=== PATIENT | female | born 1980 | race Two or more races ===

== ENCOUNTER 2017-08-19 19:30 | Emergency (ER) | payer MEDICAID ==
[~2017-08-19] VITALS: Ht 162.6 cm; Wt 103.9 kg
[~2017-08-19 19:30] MED LIST: ALBUTEROL SULF8.5 GM INH; CIPROFLOXACIN500 M2 ORAL; FLOMAX0.4 MG ORAL; IBUPROFEN600 MG ORAL; IBUPROFEN800 MG ORAL; INH300 MG ORAL; KEFLEX500 MG ORAL; MECLIZINE HCL25 MG ORAL; NITROFURANTOIN100 M2 ORAL; NKM; NORCO 5-325 TA1 EACH ORAL; PERMETHRIN60 GM TOPIC; PREDNISONE20 MG ORAL; PYRIDOXINE HCL50 MG ORAL; RANITIDINE HCL150 MG ORAL; TAMSULOSIN HCL0.4 MG ORAL; TRAMADOL HCL50 MG ORAL; ZOFRAN ODT4 MG ORAL; ZOFRAN4 MG ORAL
[2017-08-19] MEDS ORDERED: Excedrin Migraine tab ORAL ONE (20:00)
[2017-08-19 20:13] LABS: APPEARANCE,URINE CLEAR; BILIRUBIN, URINE NEGATIVE (NEGATIVE); COLOR,URINE PALE YELLOW; GLUCOSE, URINE (UA) NEGATIVE (NEGATIVE); KETONES,URINE NEGATIVE (NEGATIVE); LEUKOCYTE ESTERASE ,URINE NEGATIVE (NEGATIVE); NITRITE,URINE NEGATIVE (NEGATIVE); PH,URINE 6.5 (4.5-8.0); PROTEIN,URINE NEGATIVE (NEGATIVE); UROBILINOGEN,URINE NORMAL MG/DL (0.0-1.0)
[2017-08-19] MEDS ORDERED: HYDROcodone/Acetamin 7.5/325 tab ORAL ONE (20:45)
--- NOTE | 2017-08-19 21:31 | Emergency Room Report ---
History of Present Illness General Chief Complaint: Headache Source: Patient Present Illness HPI 37-year-old female presents to the emergency department complaining of right- sided progressive pulsatile frontal headache with associated nausea x2 weeks. Patient reports history of migraines with similar presentation without auditory or visual aura. Patient reports loud noises and bright lights do exacerbate her headache. Patient states she's has been out of her migraine medication and she has been trying multiple khdj-gto-wpmcwiy remedies which only provide little temporary relief. Patient denies dysuria, vomiting, fevers, chills, neck pain or stiffness. Denies unilateral weakness, facial drooping, slurred speech, lacrimation or headaches that return at the same time daily. Denies eye pain, or pain with eye movements. Denies recent spinal procedures/LP's. Patient reports dizziness upon getting up too quickly she denies vertigo. Patient reports that she does not drink water regularly.she denies . Denies CP, Palpitations, LOC, AMS, dizziness, Changes in Vision, Sensation, paresthesias, or a sudden severe headache. Allergies: Coded Allergies: No Known Allergies (Unverified , 09/09/13) Patient History Past Medical History: see triage record Past Surgical History: none Pertinent Family History: none Last Menstrual Period: 3yrs ago Now: No Immunizations: UTD Reviewed Nursing Documentation: PMH: Agreed, PSxH: Agreed Nursing Documentation-PMH Hx Asthma: Yes Review of Systems All Other Systems: negative except mentioned in HPI Physical Exam Vital Signs Date Time Temp Pulse Resp B/P (MAP) Pulse Ox O2 Delivery O2 Flow Rate FiO2 08/19/17 19:37 98.2 90 18 130/87 99 Room Air Sp02 EP Interpretation: reviewed, normal General Appearance: no apparent distress, alert, GCS 15, non-toxic Head: normocephalic, atraumatic Eyes: bilateral eye normal inspection, bilateral eye PERRL, bilateral eye EOMI - without pain, bilateral eye other - no appreciable photophobia ENT: hearing grossly normal, normal voice Neck: full range of motion, no meningismus, no bony tend Respiratory: lungs clear, normal breath sounds, speaking full sentences Cardiovascular #1: regular rate, rhythm Genitourinary: normal inspection, no CVA tenderness Musculoskeletal: back normal, gait/station normal, normal range of motion, non- tender Neurologic: alert, oriented x3, responsive, motor strength/tone normal, sensory intact, normal gait, speech normal, no pronator, other - no facial droop., grossly normal Psychiatric: judgement/insight normal Skin: normal color, no rash, warm/dry, well hydrated Lymphatic: no adenopathy Medical Decision Making PA Attestation Dr. Stephenson is my supervising Physician whom patient management has been discussed with. Diagnostic Impression: Primary Impression: Headache Qualified Codes: R51 - Headache ER Course 37-year-old female presents to the emergency department complaining of right- sided progressive pulsatile frontal headache with associated nausea x2 weeks. Patient reports history of migraines with similar presentation without auditory or visual aura. Patient reports loud noises and bright lights do exacerbate her headache. Patient states she's has been out of her migraine medication and she has been trying multiple gpux-dcb-ykadroz remedies which only provide little temporary relief. Patient denies dysuria, vomiting, fevers, chills, neck pain or stiffness. Denies unilateral weakness, facial drooping, slurred speech, lacrimation or headaches that return at the same time daily. Denies eye pain, or pain with eye movements. Denies recent spinal procedures/LP's. Patient reports dizziness upon getting up too quickly she denies vertigo. Patient reports that she does not drink water regularly.she denies . Denies CP, Palpitations, LOC, AMS, dizziness, Changes in Vision, Sensation, paresthesias, or a sudden severe headache. Ddx considered but are not limited to migraine, SAH, Psedudo motor Cerebri, Mass lesion, Cluster ABDI, Tension ABDI, Post lumbar puncture ABDI. Vital signs: are WNL, pt. is afebrile H&PE are most consistent with migraine headache- No evidence of focal neurological deficit at this time. ORDERS: -UA: unremarkable -OrthoStatic VS: negative no increased in HR or decrease in BP ( BP went up , and HR remained in the 80's) ED INTERVENTIONS: - Reglan - Excedrin migraine re-eval pt. continues to have ABDI that she reports has only minimally improved. - [place] PO -- reviewed previous visit for ABDI that responded well to ( zofran and norco) Pt. reports ABDI has been moderately reduced. DISCHARGE: At this time pt. is stable for d/c to home. Will provide printed patient care instructions, and any necessary prescriptions. Care plan and follow up instructions have been discussed with the patient prior to discharge. Labs Test 08/19/17 19:50 Urine Color Pale yellow Urine Appearance Clear Urine pH 6.5 (4.5-8.0) Urine Specific [place] 1.015 (1.005-1.035) Urine Protein Negative (NEGATIVE) Urine Glucose (UA) Negative (NEGATIVE) Urine Ketones Negative (NEGATIVE) Urine Occult Blood 4+ (NEGATIVE) Urine Nitrite Negative (NEGATIVE) Urine Bilirubin Negative (NEGATIVE) Urine Urobilinogen Normal MG/DL (0.0-1.0) Urine Leukocyte Esterase Negative (NEGATIVE) Urine RBC 5-10 /HPF (0 - 2) Urine WBC 2-4 /HPF (0 - 2) Urine Squamous Epithelial Cells Few /LPF (NONE/OCC) Urine Bacteria Few /HPF (NONE) Last Vital Signs Date Time Temp Pulse Resp B/P (MAP) Pulse Ox O2 Delivery O2 Flow Rate FiO2 08/19/17 19:37 98.2 90 18 130/87 99 Room Air Disposition: HOME, SELF-CARE Condition: Stable Scripts Naproxen Sodium (NAPROXEN SODIUM DS) 550 Mg Tablet 550 MG PO Q12HR, #20 TAB Prov: Keke Nelson 08/19/17 Butalbit/Acetamin/Caff/Codeine (ELXDRR-CMDF-LQVJPWDKFCE-CODEIN) 1 Each Capsule 1 EACH PO Q8HR, #6 CAP Prov: Keke Nelson 08/19/17 Referrals: NOT CHOSEN [facility]/MD,REFERRING (PCP) Patient Instructions: Migraine Headache Additional Instructions: Take medications as directed. Follow up with a Primary Care Provider for NEUROLOGIST REFERRAL in 3-5 days , even if your symptoms have resolved. --Please review list of primary care clinics, if you do not already have a primary care provider Return sooner to ED if new symptoms occur, or current symptoms become worse. Do not drink alcohol, drive, or operate heavy machinery while taking Tylenol # 3 as this may cause drowsiness. - Please note that this Emergency Department Report was dictated using [email or web address] compressed gases technology software, occasionally this can lead to erroneous entry secondary to interpretation by the dictation equipment. Keke Nelson Aug 19, 2017 21:31
[2017-08-19] MEDS ORDERED: NAPROXEN SODIU550 M2 PO (21:34)
[2017-08-19] MEDS ORDERED: BUTALB-CAFF-AC1 EACH PO (21:34)
[2017-08-19 22:01] VITALS: BP_SYST 132; BP_SYST 136; BP_DIAS 70; BP_DIAS 88
[2017-08-19 22:03] VITALS: BP 130/87
== END 2017-08-19 22:04 | disposition home or self-care (01) ==
LOC: EMR 20:20
DX: R51 Headache (principal); J45.909 Unspecified asthma, uncomplicated
CPT/HCPCS: 81003; 99284

== ENCOUNTER 2017-09-10 18:29 | Emergency (ER) | payer MEDICAID ==
[~2017-09-10] VITALS: Ht 162.6 cm; Wt 113.4 kg
[~2017-09-10 18:29] MED LIST changes: +BUTALB-CAFF-AC1 EACH PO; +NAPROXEN SODIU550 M2 PO
[2017-09-10 19:30] VITALS: BP 147/81
--- NOTE | 2017-09-10 19:35 | Emergency Room Report ---
History of Present Illness General Chief Complaint: Sore Throat Source: Patient Present Illness HPI Patient presents with 2 days of sore throat. She states that she's had trouble swallowing. The main issues pain on the left side of her throat. She has also pain when she turns her head to the left-hand side. The pain is also in her ear. Slight headache and nasal congestion. Pain rated 10/10, sharp and burning with swallowing, radiates to ear and neck on Left. No change in voice or problems opening her mouth. No cough, dyspnea, chest pain, rashes, joint pain. rashes. States she is not although last period was 3 years ago. No dysuria. H/O migraines and renal stones. Also asthma. Denies wheezing. Allergies: Coded Allergies: No Known Allergies (Unverified , 09/09/13) Patient History Past Medical History: see triage record Social History: Denies: smoking Social History Narrative home visitor Last Menstrual Period: 3 years ago / contraceptive measures Reviewed Nursing Documentation: PMH: Agreed, PSxH: Agreed Nursing Documentation-PMH Past Medical History: No History, Except For Hx Asthma: Yes Review of Systems All Other Systems: negative except mentioned in HPI Physical Exam Vital Signs Date Time Temp Pulse Resp B/P (MAP) Pulse Ox O2 Delivery O2 Flow Rate FiO2 09/10/17 18:55 100.2 110 18 147/81 98 Room Air 100.2 Sp02 EP Interpretation: reviewed, normal General Appearance: well appearing, no apparent distress, alert, GCS 15, non- toxic Head: normocephalic, atraumatic Eyes: bilateral eye normal inspection, bilateral eye PERRL ENT: hearing grossly normal, normal voice, TMs + canals normal, moist mucus membranes, tonsillar swelling - Right, pharyngeal erythema Neck: full range of motion, supple Respiratory: lungs clear, no respiratory distress, speaking full sentences Cardiovascular #1: regular rate, rhythm Cardiovascular #2: 2+ radial (R) Gastrointestinal: normal inspection, soft Musculoskeletal: digits/nails normal, gait/station normal, normal range of motion Neurologic: alert, normal gait, grossly normal Psychiatric: mood/affect normal Skin: no rash Medical Decision Making Diagnostic Impression: Primary Impression: Strep pharyngitis ER Course Patient presents with L sided throat pain with fevers. Ddx: strep, THERMAL SURFACING MACHINE OPERATOR, viral, URI amongst others. Swelling is on opposite side of where pain is. Exam consistent with strep. Antibiotics indicated as well as analgesia (lido). Will treat with shot of rocephin and dexamethasone. Improved with treatment. Patient stable for outpatient observation and treatment. Last Vital Signs Date Time Temp Pulse Resp B/P (MAP) Pulse Ox O2 Delivery O2 Flow Rate FiO2 09/10/17 20:30 97.3 110 18 147/81 98 Room Air 212.4 Status: improved Disposition: HOME, SELF-CARE Condition: Improved Scripts Codeine/Promethazine Hcl* (PROMETHAZINE-CODEINE SYRUP*) 118 Ml Syrup 5 ML ORAL Q6H Y for For Pain, #60 ML 0 Refills Prov: Steven Stephenson M.D. 09/10/17 Ibuprofen* (MOTRIN*) 100 Mg/5 Ml Oral.susp 30 ML ORAL Q6HR, #240 ML 0 Refills Prov: Steven Stephenson M.D. 09/10/17 Lidocaine HCl 2% Viscous (Lidocaine HCl 2% Viscous) 100 Ml Solution 10 ML ORAL QID Y for For Pain, #100 ML Prov: Steven Stephenson M.D. 09/10/17 Referrals: NOT CHOSEN [facility]/,REFERRING (PCP) Steven Stephenson M.D. Sep 10, 2017 19:35
[2017-09-10] MEDS ORDERED: Dexamethasone Elixir 0.25mg/2.5ml ORAL ONE (19:45)
[2017-09-10] MEDS ORDERED: Lidocaine 2% Visc 15ml soln ORAL ONE (19:45)
[2017-09-10] MEDS ORDERED: Lidocaine 1% MPF 10mg/ml 5ml INJ ONE (19:45)
[2017-09-10] MEDS ORDERED: Acetaminophen Soln 160mg/5ml ORAL ONE (19:45)
[2017-09-10] MEDS ORDERED: LIDOCAINE VISC100 ML ORAL (20:12)
[2017-09-10] MEDS ORDERED: IBUPROFEN100 MG/5 M ORAL (20:12)
[2017-09-10] MEDS ORDERED: PROMETHAZINE-C118 M1 ORAL (20:12)
[2017-09-10 20:30] VITALS: BP 147/81
== END 2017-09-10 20:30 | disposition home or self-care (01) ==
LOC: EMR 19:18
DX: J02.0 Streptococcal pharyngitis (principal); J45.909 Unspecified asthma, uncomplicated
CPT/HCPCS: 96372; 99284; J0696

== ENCOUNTER 2017-10-05 14:26 | Emergency (ER) | payer MEDICAID ==
[~2017-10-05] VITALS: Ht 162.6 cm; Wt 95.3 kg
[~2017-10-05 14:26] MED LIST changes: +IBUPROFEN100 MG/5 M ORAL; +LIDOCAINE VISC100 ML ORAL; +PROMETHAZINE-C118 M1 ORAL
[2017-10-05 15:00] VITALS: BP 136/89
[2017-10-05] MEDS ORDERED: Mylanta II UD 30ml ORAL ONE (15:00)
[2017-10-05] MEDS ORDERED: Lidocaine 2% Visc 15ml soln ORAL ONE (15:00)
--- NOTE | 2017-10-05 15:03 | Emergency Room Report ---
History of Present Illness General Chief Complaint: Abdominal Pain Source: Patient Present Illness HPI 37-year-old female presents with left-sided abdominal pain since this morning. Pain is constant, burning in quality, nonradiating and associated with nausea. No diarrhea, vomiting, dysuria, polyuria or fevers or chills. Patient denies history of renal stones however EMR indicates she's been here multiple times for both kidney stones and urinary tract infections. Patient did not take anything for the pain at home. Allergies: Coded Allergies: No Known Allergies (Unverified , 09/09/13) Patient History Past Medical History: none Past Surgical History: none Pertinent Family History: none Social History: Denies: smoking, alcohol use, drug use Now: No Immunizations: UTD Reviewed Nursing Documentation: PMH: Agreed, PSxH: Agreed Nursing Documentation-PMH Hx Asthma: Yes Review of Systems All Other Systems: negative except mentioned in HPI Physical Exam Vital Signs Date Time Temp Pulse Resp B/P (MAP) Pulse Ox O2 Delivery O2 Flow Rate FiO2 10/05/17 14:38 97.9 85 20 136/89 99 Room Air 97.9 Sp02 EP Interpretation: reviewed, normal General Appearance: normal inspection, well appearing, no apparent distress, alert, GCS 15, non-toxic Head: normocephalic, atraumatic Eyes: bilateral eye PERRL, bilateral eye EOMI ENT: normal ENT inspection, hearing grossly normal, normal pharynx, no angioedema, normal voice, TMs + canals normal, uvula midline, moist mucus membranes Neck: normal inspection, full range of motion, supple, thyroid normal, no meningismus, no bony tend Respiratory: normal inspection, lungs clear, normal breath sounds, no rhonchi, no respiratory distress, no retraction, no accessory muscle use, no wheezing, speaking full sentences Cardiovascular #1: regular rate, rhythm, no edema, no JVD, normal capillary refill Gastrointestinal: normal inspection, normal bowel sounds, soft, no mass, no peritonitis, non-distended, no guarding, no hernia, no pulsatile mass, other - Epigastric tenderness to palpation. No rebound, guarding, peritonitis. Genitourinary: no CVA tenderness Musculoskeletal: normal inspection, back normal, normal range of motion, no calf tenderness, pelvis stable, Gage's Sign negative Neurologic: normal inspection, alert, oriented x3, responsive, aerial lineman III-XII nml as tested, motor strength/tone normal, cerebellar normal, normal gait, speech normal Psychiatric: normal inspection, judgement/insight normal, mood/affect normal, no suicidal/homicidal ideation, no delusions Skin: normal inspection, normal color, no rash Lymphatic: normal inspection, no adenopathy Medical Decision Making Diagnostic Impression: Primary Impression: Abdominal pain of unknown etiology ER Course mild epigastric tenderness on exam Burning abdominal pain sounds more like gastritis, gastroenteritis Unlikely to be renal calculus given patient's well appearance, normal vital signs, and constant quality of pain Patient did not produce a urine sample however unlikely to be UTI given no dysuria no polyuria Was given GI cocktail and Zofran with improvement in symptoms Low suspicion for acute bacterial or surgical process given nonfocal abdomen on serial exam, stable vitals, well appearance and no history of abdominal, pelvic surgery in the past ER course: Patient has remained stable during ED stay. Disposition: Patient is to be discharged to home. Prescriptions given are pepcid, zofran Patient is instructed to follow up with their primary care doctor within 5 days. Strict return precautions discussed with patient such as fever, chills, worsening/severe pain, nausea, vomiting, which may indicate severe illness. Patient verbalizes understanding and agrees with plan. Please note that this Emergency Department Report was dictated using [employer] social media technology software, occasionally this can lead to erroneous entry secondary to interpretation by the dictation equipment Last Vital Signs Date Time Temp Pulse Resp B/P (MAP) Pulse Ox O2 Delivery O2 Flow Rate FiO2 10/05/17 14:38 97.9 85 20 136/89 99 Room Air 97.9 Status: improved Disposition: HOME, SELF-CARE KATHARINA VARELA M.D. Oct 05, 2017 15:03
[2017-10-05] MEDS ORDERED: ZOFRAN ODT4 MG ORAL (15:04)
[2017-10-05] MEDS ORDERED: PEPCID40 MG PO (15:04)
[2017-10-05] MEDS ORDERED: Ketorolac 60mg Inj IM ONE (16:00)
[2017-10-05 16:05] VITALS: BP 136/89
== END 2017-10-05 16:00 | disposition home or self-care (01) ==
LOC: EMR 15:01
DX: R10.9 Unspecified abdominal pain (principal); J45.909 Unspecified asthma, uncomplicated
CPT/HCPCS: 96372; 99283

== ENCOUNTER 2018-03-11 08:21 | Emergency (ER) | payer MEDICAID ==
[~2018-03-11] VITALS: Ht 162.6 cm; Wt 95.3 kg
[~2018-03-11 08:21] MED LIST changes: +PEPCID40 MG PO
[2018-03-11 08:38] VITALS: BP 124/83
--- NOTE | 2018-03-11 09:01 | Emergency Room Report ---
History of Present Illness General Chief Complaint: Pain Source: Patient Present Illness [facility] This patient c/o burning pain/discomfort right lower/medial breast started yesterday. Pt. denies chest/abd pain, says it is her breast. There is no rash, no nipple d/c. No fever, no cough, no trauma. No n/v. No change in appetite/ bowels/urine. Allergies: Coded Allergies: No Known Allergies (Unverified , 09/09/13) Patient History Last Menstrual Period: 3 yrs ago Now: No Nursing Documentation-PMH Hx Asthma: Yes Review of Systems Constitutional: Reports: no symptoms Eye: Reports: no symptoms ENT: Reports: no symptoms Respiratory: Reports: no symptoms Cardiovascular: Reports: no symptoms Gastrointestinal: Reports: no symptoms Genitourinary: Reports: no symptoms Musculoskeletal: Reports: no symptoms Skin: Reports: no symptoms Psychiatric: Reports: no symptoms Neurological: Reports: no symptoms Endocrine: Reports: no symptoms Hematologic/Lymphatic: Reports: no symptoms Allergic: Reports: no symptoms All Other Systems: negative except mentioned in HPI Physical Exam Vital Signs Date Time Temp Pulse Resp B/P (MAP) Pulse Ox O2 Delivery O2 Flow Rate FiO2 03/11/18 08:31 98.2 73 18 124/83 96 Room Air 98.2 Sp02 EP Interpretation: reviewed, normal General Appearance: normal inspection, well appearing, no apparent distress, alert, GCS 15, non-toxic Head: normocephalic, atraumatic Eyes: bilateral eye normal inspection, bilateral eye PERRL, bilateral eye EOMI ENT: normal ENT inspection, hearing grossly normal, normal pharynx, no angioedema, normal voice, moist mucus membranes Neck: normal inspection, full range of motion, supple, no meningismus, no bony tend Respiratory: normal inspection, lungs clear, normal breath sounds, no rhonchi, no respiratory distress, no retraction, no accessory muscle use, no wheezing, other - right breast: normal. no rash, no cyst, no mass, no swelling, no abrasion. normal. Cardiovascular #1: normal inspection, regular rate, rhythm, no edema Gastrointestinal: normal inspection, normal bowel sounds, non tender, soft, no mass, non-distended Musculoskeletal: gait/station normal, normal range of motion Neurologic: normal inspection, alert, oriented x3, responsive, motor strength/ tone normal Psychiatric: normal inspection, judgement/insight normal, memory normal Suicide Risk Assessment: Suicidal Ideation: No Had intent to initiate attempt: No Pt's plan for suicide attempt: No Has means to complete attempt: No Skin: normal inspection, normal color, no rash, warm/dry Medical Decision Making Diagnostic Impression: Primary Impression: Breast pain in female ER Course Pt. consistently denies anything but this discomfort described as a burning right-medial breast. She has not tried anything at all. There is no abnormality on PE. I advised patient symptoms likely to spontaneously resolve, in the meantime to try Tylenol or Motrin. To see her PMD in a week for follow up. Today 's exam is NOT equivalent to a full breast exam by a specialist. I am NOT someone who can say yea/nay to occult mass. There is no palpable mass at this time. Last Vital Signs Date Time Temp Pulse Resp B/P (MAP) Pulse Ox O2 Delivery O2 Flow Rate FiO2 03/11/18 08:38 98.2 73 18 124/83 96 Room Air 98.2 Disposition: HOME, SELF-CARE Condition: Stable Levi Boyle M.D. Mar 11, 2018 09:01
[2018-03-11 09:21] VITALS: BP 124/83
== END 2018-03-11 09:22 | disposition home or self-care (01) ==
LOC: EMR 09:06
DX: N64.4 Mastodynia (principal); J45.909 Unspecified asthma, uncomplicated
CPT/HCPCS: 99282

== ENCOUNTER 2018-03-17 00:24 | Emergency (ER) | payer MEDICAID ==
[~2018-03-17] VITALS: Ht 162.6 cm; Wt 102.5 kg
[2018-03-17 01:18] LABS: BASOPHILS % (AUTO) 1.8 % (0.0-2.0); EOSINOPHILS % (AUTO) 8.8 % (0.0-3.0); HEMATOCRIT 39.7 % (37.0-47.0); LYMPHOCYTES % (AUTO) 41.1 % (20.0-45.0); MEAN CORPUSCULAR VOLUME 87 FL (80-99); NEUTROPHILS % (AUTO) 41.3 % (45.0-75.0); PLATELET COUNT 294 K/UL (150-450); RED BLOOD COUNT 4.58 M/UL (4.20-5.40); RED CELL DISTRIBUTION WIDTH 12.4 % (11.6-14.8)
[2018-03-17 01:29] LABS: ANION GAP 6 mmol/L (5-15); BLOOD UREA NITROGEN 15 mg/dL (7-18); CALCIUM 8.6 MG/DL (8.5-10.1); CARBON DIOXIDE 29 MMOL/L (21-32); CHLORIDE 104 MMOL/L (98-107); CREATININE 0.9 MG/DL (0.55-1.30); POTASSIUM 3.9 MMOL/L (3.5-5.1); SODIUM 139 MMOL/L (136-145)
[2018-03-17 01:44] LABS: ALANINE AMINOTRANSFERASE 23 U/L (12-78); ALBUMIN 3.5 G/DL (3.4-5.0); ALBUMIN/GLOBULIN RATIO 0.8 (1.0-2.7); ALKALINE PHOSPHATASE 108 U/L (46-116); ASPARTATE AMINO TRANSFERASE 21 U/L (15-37); BILIRUBIN,TOTAL 0.2 MG/DL (0.2-1.0); CKMB 0.8 NG/ML (0.0-3.6); CREATINE KINASE 79 U/L (26-308)
[2018-03-17] MEDS ORDERED: Morphine Sulfate 4mg/ml Inj (IV USE ONLY) IVP ONE (02:15)
--- NOTE | 2018-03-17 02:35 | Emergency Room Report ---
History of Present Illness General Chief Complaint: Chest Pain Source: Patient Present Illness HPI 37-year-old female presents ED complaining of chest pain. On and off 1 day. Right-sided, sharp, 8 out of 10, nonradiating. Denies shortness of breath. Notes cough. Nonproductive. Denies fevers or chills. Patient is referred here because she has a control implant in her left arm. Denies leg swelling or arm swelling. No other aggravating relieving factors. Denies any other associated symptoms Allergies: Coded Allergies: No Known Allergies (Unverified , 09/09/13) Patient History Past Medical History: asthma Past Surgical History: none Pertinent Family History: none Social History: Denies: smoking, alcohol use, drug use Now: No Immunizations: UTD Reviewed Nursing Documentation: PMH: Agreed; PSxH: Agreed Nursing Documentation-PMH Hx Asthma: Yes Review of Systems All Other Systems: negative except mentioned in HPI Physical Exam Vital Signs Date Time Temp Pulse Resp B/P (MAP) Pulse Ox O2 Delivery O2 Flow Rate FiO2 03/17/18 00:46 98.1 76 16 139/81 97 Room Air 98.1 Sp02 EP Interpretation: reviewed, normal General Appearance: no apparent distress, alert, GCS 15, non-toxic, obese Head: normocephalic, atraumatic Eyes: bilateral eye normal inspection, bilateral eye PERRL ENT: hearing grossly normal, normal pharynx, no angioedema, normal voice Neck: full range of motion, supple/symm/no masses Respiratory: chest non-tender, lungs clear, normal breath sounds, speaking full sentences Cardiovascular #1: regular rate, rhythm, no edema Cardiovascular #2: 2+ carotid (R), 2+ carotid (L), 2+ radial (R), 2+ radial (L) , 2+ dorsalis pedis (R), 2+ dorsalis pedis (L) Gastrointestinal: normal bowel sounds, non tender, soft, non-distended, no guarding, no rebound Rectal: deferred Genitourinary: normal inspection, no CVA tenderness Musculoskeletal: back normal, gait/station normal, normal range of motion, non- tender Neurologic: alert, oriented x3, responsive, motor strength/tone normal, sensory intact, speech normal Psychiatric: judgement/insight normal, memory normal, mood/affect normal, no suicidal/homicidal ideation Reflexes: 3+ bicep (R), 3+ bicep (L), 3+ tricep (R), 3+ tricep (L), 3+ knee (R) , 3+ knee (L) Skin: normal color, warm/dry, well hydrated, other - multiple erythematous papules to back. Lymphatic: no adenopathy Medical Decision Making Diagnostic Impression: Primary Impression: Chest pain Qualified Codes: R07.9 - Chest pain, unspecified Additional Impression: Rash ER Course Hospital Course 37-year-old F presents ED complaining of chest pain Differential diagnoses include: Rib fracture, DC/unstable angina, contusion, muscle strain Clinical course Patient placed on stretcher. After initial history and physical I ordered labs , EKG, chest x-ray. EKG - NSR, no acute ischemic changes interpreted by me labs reviewed- all electrolytes normal, troponins negative, no leukocytosis, hemoglobin/hematocrit stable, ddimer normal Chest x-ray-no cardiomegaly, no rib fracture, no pneumothorax, no acute process On exam patient does have a rash to her back on the right side. multiple erythematous papules. We will treat with antibiotics. Patient safe for discharge with close outpatient follow-up I. I feel this is a highly complex case requiring extensive working including EKG/Rhythm strip, Xray/CT/US, Blood/urine lab work, repeat exams while in ED, and administration of strong opiates/narcotics for pain control, admission to hospital or close patient follow up. Diagnosis - chest pain, rash Stable and discharged to home with Rx Tylenol #3, Keflex. Instructed to followup with PMD. Return to ED if symptoms recur or worsen Labs Test 03/17/18 01:00 White Blood Count 9.0 K/UL (4.8-10.8) Red Blood Count 4.58 M/UL (4.20-5.40) Hemoglobin 13.0 G/DL (12.0-16.0) Hematocrit 39.7 % (37.0-47.0) Mean Corpuscular Volume 87 FL (80-99) Mean Corpuscular Hemoglobin 28.5 PG (27.0-31.0) Mean Corpuscular Hemoglobin Concent 32.8 G/DL (32.0-36.0) Red Cell Distribution Width 12.4 % (11.6-14.8) Platelet Count 294 K/UL (150-450) Mean Platelet Volume 7.1 FL (6.5-10.1) Neutrophils (%) (Auto) 41.3 % (45.0-75.0) Lymphocytes (%) (Auto) 41.1 % (20.0-45.0) Monocytes (%) (Auto) 7.0 % (1.0-10.0) Eosinophils (%) (Auto) 8.8 % (0.0-3.0) Basophils (%) (Auto) 1.8 % (0.0-2.0) D-Dimer 0.39 mg/L FEU (0.00-0.49) Sodium Level 139 MMOL/L (136-145) Potassium Level 3.9 MMOL/L (3.5-5.1) Chloride Level 104 MMOL/L (98-107) Carbon Dioxide Level 29 MMOL/L (21-32) Anion Gap 6 mmol/L (5-15) Blood Urea Nitrogen 15 mg/dL (7-18) Creatinine 0.9 MG/DL (0.55-1.30) Estimat Glomerular Filtration Rate > 60 mL/min (>60) Glucose Level 130 MG/DL (74-106) Calcium Level 8.6 MG/DL (8.5-10.1) Total Bilirubin 0.2 MG/DL (0.2-1.0) Aspartate Amino Transf (AST/SGOT) 21 U/L (15-37) Alanine Aminotransferase (ALT/SGPT) 23 U/L (12-78) Alkaline Phosphatase 108 U/L (46-116) Total Creatine Kinase 79 U/L (26-308) Creatine Kinase MB 0.8 NG/ML (0.0-3.6) Creatine Kinase MB Relative Index 1.0 Troponin I 0.000 ng/mL (0.000-0.056) Total Protein 7.9 G/DL (6.4-8.2) Albumin 3.5 G/DL (3.4-5.0) Globulin 4.4 g/dL Albumin/Globulin Ratio 0.8 (1.0-2.7) EKG Diagnostic Results Rate: normal Rhythm: NSR ST Segments: no acute changes ASA given to the pt in ED: No Rhythm Strip Diag. Results EP Interpretation: yes Rhythm: NSR, no PVC's, no ectopy Chest X-Ray Diagnostic Results Chest X-Ray Diagnostic Results : Chest X-Ray Ordered: Yes # of Views/Limited/Complete: 1 View Indication: Chest Pain EP Interpretation: Yes Interpretation: no consolidation, no effusion, no pneumothorax, no acute cardiopulmonary disease Impression: No acute disease Electronically Signed by: Electronically signed by Kurt Amin MD Last Vital Signs Date Time Temp Pulse Resp B/P (MAP) Pulse Ox O2 Delivery O2 Flow Rate FiO2 03/17/18 02:12 98.1 03/17/18 01:04 76 16 Room Air 03/17/18 00:46 139/81 97 Status: improved Disposition: HOME, SELF-CARE Condition: Stable Scripts Cephalexin* (KEFLEX*) 500 Mg Capsule 500 MG ORAL EVERY 6 HOURS for 7 Days, CAP Prov: Kurt Amin MD 03/17/18 Acetaminophen With Codeine (T#3) (TYLENOL #3 TAB*) Y Tab 1 TAB ORAL Q8H PRN for For Pain, #20 TAB Prov: Kurt Amin MD 03/17/18 Referrals: NOT CHOSEN [facility]/,REFERRING (PCP) Kurt Amin MD Mar 17, 2018 02:34
[2018-03-17] MEDS ORDERED: ACETAMINOPHEN-1 EAC1 ORAL (02:42)
[2018-03-17] MEDS ORDERED: CEPHALEXIN500 MG ORAL (02:42)
[2018-03-17 02:53] VITALS: BP 139/81
--- NOTE | 2018-03-17 11:06 | Diagnostic Imaging Report ---
Indication: Chest pain Comparison: 07/22/2014 A single view chest radiograph was obtained. Findings: Cardiomediastinal appearance is within normal limits for age. Pulmonary vascularity is appropriate. The diaphragmatic contour is smooth and costophrenic angles are sharp. No pleural effusions are identified. The bones are unremarkable. Impression: No acute findings
--- NOTE | 2018-03-17 16:43 | Cardiology Report ---
APPROVED REPORT EKG Measurement Heart [id number] Normal sinus rhythm Rightward axis Borderline ECG
== END 2018-03-17 02:54 | disposition home or self-care (01) ==
LOC: EMR 01:05
DX: R07.9 Chest pain, unspecified (principal); R21 Rash and other nonspecific skin eruption; J45.909 Unspecified asthma, uncomplicated
CPT/HCPCS: 36415; 71045; 80053; 81025; 82550; 82553; 84484; 85025; 85379; 93005; 96374; 99284; J2270

== ENCOUNTER 2018-08-15 20:08 | Emergency (ER) | payer SELFPAY ==
[~2018-08-15] VITALS: Ht 157.5 cm; Wt 107.0 kg
[~2018-08-15 20:08] MED LIST changes: +ACETAMINOPHEN-1 EAC1 ORAL; +CEPHALEXIN500 MG ORAL
[2018-08-15] MEDS ORDERED: ALBUTEROL2.5 MG/3 M INH (20:16)
[2018-08-15 20:21] VITALS: BP 135/79
[2018-08-15] MEDS ORDERED: Excedrin Migraine tab ORAL ONE (20:30)
[2018-08-15] MEDS ORDERED: FIORICET1 EA ORAL (20:45)
[2018-08-15 21:40] VITALS: BP 135/79
--- NOTE | 2018-08-15 21:45 | NUR ---
ED Nurse Note: pt d/c per ermd, pt given discharge and medication instructions. pt is aox4 and verbalized understanding. ID band removed. pt left ED with all belongings.
--- NOTE | 2018-08-16 14:42 | Emergency Room Report ---
History of Present Illness General Chief Complaint: Headache Source: Patient Present Illness HPI 38-year-old female presents ED for evaluation. Complaining of headache for the last 3 days. Frontal, throbbing, 7 out of 10 nonradiating. States she has history of migraines. Denies photophobia or blurry vision. Denies nausea or vomiting. Denies neck stiffness. Denies fevers or chills. Does not take any particular medication for the migraines. No other aggravating relieving factors. Denies any other associated symptoms Allergies: Coded Allergies: No Known Allergies (Unverified , 09/09/13) Patient History Past Medical History: asthma Past Surgical History: none Pertinent Family History: none Social History: Denies: smoking, alcohol use, drug use Last Menstrual Period: AUG 08 Now: No : 5 Para: 4 Immunizations: UTD Reviewed Nursing Documentation: PMH: Agreed; PSxH: Agreed Nursing Documentation-PMH Hx Asthma: Yes Review of Systems All Other Systems: negative except mentioned in HPI Physical Exam Vital Signs Date Time Temp Pulse Resp B/P (MAP) Pulse Ox O2 Delivery O2 Flow Rate FiO2 08/15/18 20:11 98.2 95 14 135/79 99 Room Air Sp02 EP Interpretation: reviewed, normal General Appearance: no apparent distress, alert, GCS 15, non-toxic Head: normocephalic, atraumatic Eyes: bilateral eye normal inspection, bilateral eye PERRL, bilateral eye EOMI , bilateral eye visual acuity ENT: hearing grossly normal, normal pharynx, no angioedema, normal voice Neck: full range of motion, supple, no meningismus, supple/symm/no masses Respiratory: chest non-tender, lungs clear, normal breath sounds, speaking full sentences Cardiovascular #1: regular rate, rhythm, no edema Cardiovascular #2: 2+ carotid (R), 2+ carotid (L), 2+ radial (R), 2+ radial (L) , 2+ dorsalis pedis (R), 2+ dorsalis pedis (L) Gastrointestinal: normal bowel sounds, non tender, soft, non-distended, no guarding, no rebound Rectal: deferred Genitourinary: normal inspection, no CVA tenderness Musculoskeletal: back normal, gait/station normal, normal range of motion, non- tender Neurologic: alert, oriented x3, responsive, motor strength/tone normal, sensory intact, speech normal Psychiatric: judgement/insight normal, memory normal, mood/affect normal, no suicidal/homicidal ideation Reflexes: 3+ bicep (R), 3+ bicep (L), 3+ tricep (R), 3+ tricep (L), 3+ knee (R) , 3+ knee (L) Skin: normal color, no rash, warm/dry, well hydrated Lymphatic: no adenopathy Medical Decision Making Diagnostic Impression: Primary Impression: Headache Qualified Codes: R51 - Headache ER Course Hospital Course 38-year-old female presents to ED complaining of headaches x 3 days Differential diagnoses include: tension headache, migraine, dehydration, intracranial bleed Clinical course Patient placed on stretcher. After initial history, physical exam reveals female in no acute distress. Cranial nerves II through XII intact, no focal deficits, visual acuity intact, no nuchal rigidity Patient has been here previously for headaches. Responded well to Excedrin and Reglan in the past. Ordered here Upon reassessment patient states headache is improved. Safe for discharge or close outpatient follow-up. States she does not have a PMD. we'll provide referrals. i. I feel this is a highly complex case requiring extensive working including EKG/Rhythm strip, Xray/CT/US, Blood/urine lab work, repeat exams while in ED, and administration of strong opiates/narcotics for pain control, admission to hospital or close patient follow up. Diagnosis - headache stable and discharged to home with prescription for Fioricet. f/up with PMD. return to ED if symptoms recur/worsen. Last Vital Signs Date Time Temp Pulse Resp B/P (MAP) Pulse Ox O2 Delivery O2 Flow Rate FiO2 08/15/18 21:40 98.2 95 14 135/79 99 Room Air Status: improved Disposition: HOME, SELF-CARE Condition: Stable Scripts Acetamin/Butalbital/Caffeine* (FIORICET*) 1 Ea Tab 1 TAB ORAL Q6H, #15 TAB 0 Refills Prov: Kurt Amin MD 08/15/18 Referrals: NOT CHOSEN IPA/,REFERRING (PCP) [facility] Patient Instructions: Migraine Headache Kurt Amin MD Aug 16, 2018 14:42
== END 2018-08-15 21:40 | disposition home or self-care (01) ==
LOC: EMR 21:15
DX: R51 Headache (principal); J45.909 Unspecified asthma, uncomplicated
CPT/HCPCS: 99282

== ENCOUNTER 2019-03-22 22:48 | Emergency (ER) | payer MEDICAID ==
[~2019-03-22] VITALS: Ht 167.6 cm; Wt 104.3 kg
[~2019-03-22 22:48] MED LIST changes: +ALBUTEROL2.5 MG/3 M INH; +FIORICET1 EA ORAL
--- NOTE | 2019-03-22 23:03 | NUR ---
ED Nurse Note: pt walked in c/o blisters on lips since this morning. Pt is AO x 4times, VSS, on room air no distress. RICHARDD seen Pt at bedside.
[2019-03-22 23:16] VITALS: BP 149/88
--- NOTE | 2019-03-22 23:38 | Emergency Room Report ---
History of Present Illness General Chief Complaint: Pain Source: Patient Present Illness HPI Is a 38-year-old female with no significant past medical history. She presents with blister on her lower lip. Onset today. Burning sensation. Had this before but not as severe. No fever chills but no nausea no vomiting. Denies any other complaint. Allergies: Coded Allergies: No Known Allergies (Unverified , 09/09/13) Patient History Past Medical History: see triage record, old chart reviewed, asthma Past Surgical History: none Pertinent Family History: none Social History: Denies: smoking Now: No Immunizations: other Reviewed Nursing Documentation: PMH: Agreed; PSxH: Agreed Nursing Documentation-PMH Past Medical History: No History, Except For Hx Asthma: Yes Review of Systems Eye: Denies: eye pain, blurred vision ENT: Denies: ear pain, nose congestion, throat swelling Respiratory: Denies: cough, shortness of breath Cardiovascular: Denies: chest pain, palpitations Gastrointestinal: Denies: abdominal pain, diarrhea, nausea, vomiting Musculoskeletal: Denies: back pain, joint pain Skin: Reports: rash Neurological: Denies: headache, numbness Endocrine: Denies: increased thirst, increased urine Hematologic/Lymphatic: Denies: easy bruising All Other Systems: negative except mentioned in HPI Physical Exam Vital Signs Date Time Temp Pulse Resp B/P (MAP) Pulse Ox O2 Delivery O2 Flow Rate FiO2 03/22/19 22:57 98.4 96 18 144/91 (108) 96 Room Air Vitals unremarkable Sp02 EP Interpretation: reviewed, normal General Appearance: well appearing, no apparent distress, alert Head: normocephalic, atraumatic Eyes: bilateral eye PERRL, bilateral eye EOMI ENT: hearing grossly normal, normal pharynx Neck: full range of motion, supple, no meningismus Respiratory: chest non-tender, lungs clear, normal breath sounds Cardiovascular #1: regular rate, rhythm, no murmur Gastrointestinal: normal bowel sounds, non tender, no mass, no organomegaly, no bruit, non-distended Musculoskeletal: back normal, gait/station normal, normal range of motion Neurologic: alert, oriented x3 Psychiatric: mood/affect normal Skin: other - Pt with cold sore to the lower lip bilaterally. Medical Decision Making Diagnostic Impression: Primary Impression: Herpes simplex ER Course Patient with a culture. No evidence of systemic infection. Will discharge home. Last Vital Signs Date Time Temp Pulse Resp B/P (MAP) Pulse Ox O2 Delivery O2 Flow Rate FiO2 03/22/19 23:16 98.1 88 18 149/88 97 Room Air Status: unchanged Disposition: HOME, SELF-CARE Condition: Stable Scripts Valacyclovir Hcl (VALTREX) 1,000 Mg Tablet 2000 MG PO BID, #4 TAB Prov: Carlo Bean MD 03/22/19 Additional Instructions: Follow-up with your doctor in 7 days. Return if symptoms worsen. Carlo Bean MD Mar 22, 2019 23:38
[2019-03-22] MEDS ORDERED: VALTREX1000 MG PO (23:46)
[2019-03-22 23:47] VITALS: BP 149/88
--- NOTE | 2019-03-22 23:48 | NUR ---
ER DISCHARGE NOTE: Patient is cleared to be discharged per ERMD, pt is aox4, on room air, with stable vital signs. pt was given dc and prescription instructions, pt was able to verbalize understanding, pt id band removed without complications. pt is able to ambulate with steady gait. pt took all belongings.
== END 2019-03-23 00:42 | disposition home or self-care (01) ==
LOC: EMR 23:14
DX: B00.9 Herpesviral infection, unspecified (principal); J45.909 Unspecified asthma, uncomplicated
CPT/HCPCS: 99282

== ENCOUNTER 2019-03-29 13:48 | Emergency (ER) | payer MEDICAID ==
[~2019-03-29] VITALS: Ht 162.6 cm; Wt 104.3 kg
[~2019-03-29 13:48] MED LIST changes: +VALTREX1000 MG PO
[2019-03-29] MEDS ORDERED: IBUPROFEN600 MG ORAL ×2 (13:58→14:35)
--- NOTE | 2019-03-29 14:04 | NUR ---
ED Nurse Note: PT WALKED IN TO ER TODAY FROM HOME. AOX4. PT C/O LEFT EARACHE X 1 WEEK AGO. PT DENIES BLEEDING OR DRAINAGE THOUGH SHE DOES C/O SOME DECREASE IN HEARING. PT DENIES ANY TRAUMA OR INJURY. PT DENIES Q-TIP USE.
[2019-03-29 14:05] VITALS: BP 132/76
[2019-03-29 14:20] VITALS: BP 133/72
--- NOTE | 2019-03-29 14:20 | NUR ---
ED Nurse Note: PT SITTING PEACEFULLY IN BED IN NAD. AOX4. PRESCRIPTION AND DISCHARGE PAPERWORK EXPLAINED TO PT. PT VERBALIZES UNDERSTANDING AND ALL QUESTIONS ANSWERED. PRESCRIPTION AND DISCHARGE PAPERWORK GIVEN TO PT AND ID GERMAINE REMOVED. PT WALKED OUT OF ER WITH STEADY GAIT AND ALL BELONGINGS.
[2019-03-29] MEDS ORDERED: OFLOXACIN5 ML LEFT EAR (14:35)
--- NOTE | 2019-03-29 18:44 | Emergency Room Report ---
History of Present Illness General Chief Complaint: Earache Source: Patient Present Illness HPI 39-year-old female presents ED for evaluation. Patient complaining of left ear pain x2 days. Throbbing, 8 out of 10, nonradiating. Denies fevers or chills. Denies cough. Denies sore throat. Denies sick contacts or recent travel. States that she did go in the pool recently. No other aggravating relieving factors. Denies any other associated symptoms Allergies: Coded Allergies: No Known Allergies (Unverified , 09/09/13) Patient History Past Medical History: asthma Past Surgical History: none Pertinent Family History: none Social History: Denies: smoking, alcohol use, drug use Last Menstrual Period: 8-24 Now: No Immunizations: UTD Reviewed Nursing Documentation: PMH: Agreed; PSxH: Agreed Nursing Documentation-PMH Past Medical History: No History, Except For Hx Asthma: Yes Review of Systems All Other Systems: negative except mentioned in HPI Physical Exam Vital Signs Date Time Temp Pulse Resp B/P (MAP) Pulse Ox O2 Delivery O2 Flow Rate FiO2 03/29/19 13:53 99.0 90 18 135/78 (97) 96 Room Air Sp02 EP Interpretation: reviewed, normal General Appearance: no apparent distress, alert, GCS 15, non-toxic Head: normocephalic Eyes: bilateral eye normal inspection, bilateral eye PERRL ENT: other - L ear canal swollen/erythematous. unable to visualize L TM Neck: normal inspection Respiratory: normal inspection Cardiovascular #1: normal inspection Gastrointestinal: normal inspection Rectal: deferred Genitourinary: no CVA tenderness Musculoskeletal: normal inspection Neurologic: alert, oriented x3, responsive, motor strength/tone normal, sensory intact, speech normal Psychiatric: normal inspection Skin: no rash Lymphatic: normal inspection Medical Decision Making Diagnostic Impression: Primary Impression: Otitis externa Qualified Codes: H60.502 - Unspecified acute noninfective otitis externa, left ear ER Course Hospital Course 39-year-old F presents to ED with pain L ear Differential diagnoses include: TM perforation, otitis externa, otitis media Clinical course Patient placed on stretcher. After initial history, physical exam reveals a female in no acute distress. L ear canal swollen/erythematous. unable to visualize L TM consideration for otitis externa. Findings with patient. Safe for discharge close outpatient follow-up. Does not have a PMD. Will provide referrals Diagnosis - otitis externa Stable and discharged to home with Rx ofloxacin otic. Followup with PMD. Return to ED if symptoms recur or worsen Last Vital Signs Date Time Temp Pulse Resp B/P (MAP) Pulse Ox O2 Delivery O2 Flow Rate FiO2 03/29/19 14:20 98.7 82 16 133/72 100 Room Air Status: improved Disposition: HOME, SELF-CARE Condition: Stable Scripts Ibuprofen* (MOTRIN*) 600 Mg Tablet 600 MG ORAL Q8H PRN for For Pain, #30 TAB 0 Refills Prov: Kurt Amin MD 03/29/19 Ofloxacin (OFLOXACIN) 5 Ml Drops 10 DROP LEFT EAR DAILY for 7 Days, ML Prov: Kurt Amin MD 03/29/19 Referrals: NOT CHOSEN IPA/,REFERRING (PCP) [facility] Patient Instructions: Otitis Externa, [id number] Kurt Amin MD Mar 29, 2019 18:43
== END 2019-03-29 14:20 | disposition home or self-care (01) ==
LOC: EMR 14:17
DX: H60.502 Unspecified acute noninfective otitis externa, left ear (principal); J45.909 Unspecified asthma, uncomplicated
CPT/HCPCS: 99282

== ENCOUNTER 2019-04-25 16:04 | Emergency (ER) | payer MEDICAID ==
[~2019-04-25] VITALS: Ht 162.6 cm; Wt 113.4 kg
[~2019-04-25 16:04] MED LIST changes: +OFLOXACIN5 ML LEFT EAR
[2019-04-25 16:10] VITALS: BP 148/99
--- NOTE | 2019-04-25 16:15 | NUR ---
ED Nurse Note: Patient walked in to ER, accompanied by spouse, c/o left upper abdominal pain. Per patient the pain she is experiencing is a constant sharp pain x 3 weeks. No n/v episodes. No constipation or diaarhea.
--- NOTE | 2019-04-25 16:55 | NUR ---
ED Nurse Note: U/S tech at bedside.
--- NOTE | 2019-04-25 17:12 | Emergency Room Report ---
History of Present Illness General Chief Complaint: Abdominal Pain Source: Medical Record Present Illness HPI 39-year-old female with no symptom past medical history here complaining of pain x3 weeks. Patient reports that she has been coughing with yellow phlegm for the past 3 weeks and the pain in the left upper quadrant gets worse every time she coughs. Denies any nausea vomiting however complains of acid reflux. Denies diarrhea and constipation, fever and chills. Denies chest pain, shortness of breath, palpitation, sore throat, congestion. She denies having history of smoking or alcohol intake. However reports that she consumes a lot of spicy and acidic food. Rating the pain 7 out of 10 without radiation. Reports that it is worse and supine position. Denies urinary complaints, and has not taken medication for symptom relief. Patient is sitting comfortably with stable vital signs. No tenderness or guarding noted upon examination of abdomen. Denies history of any abdominal surgeries Allergies: Coded Allergies: No Known Allergies (Unverified , 09/09/13) Patient History Past Medical History: see triage record Past Surgical History: unable to obtain Pertinent Family History: none Last Menstrual Period: 04/12/19 Now: No Immunizations: UTD Reviewed Nursing Documentation: PMH: Agreed; PSxH: Agreed Nursing Documentation-PMH Past Medical History: No History, Except For Hx Asthma: Yes Review of Systems All Other Systems: negative except mentioned in HPI Physical Exam Vital Signs Date Time Temp Pulse Resp B/P (MAP) Pulse Ox O2 Delivery O2 Flow Rate FiO2 04/25/19 16:10 98.4 97 18 148/99 (115) 96 Room Air Sp02 EP Interpretation: reviewed, normal General Appearance: no apparent distress, alert, GCS 15, non-toxic Head: normocephalic, atraumatic Eyes: bilateral eye normal inspection, bilateral eye PERRL ENT: hearing grossly normal, no angioedema, normal voice, pharyngeal erythema Neck: full range of motion, supple, supple/symm/no masses Respiratory: chest non-tender, lungs clear, normal breath sounds, no rhonchi, no respiratory distress, no retraction, no wheezing, speaking full sentences Cardiovascular #1: regular rate, rhythm, no edema, no murmur Gastrointestinal: normal bowel sounds, non tender, soft, no mass, no organomegaly, no peritonitis, no bruit, non-distended, no guarding, no hernia, no pulsatile mass, no rebound Genitourinary: normal inspection, no CVA tenderness Musculoskeletal: back normal, gait/station normal, normal range of motion, non- tender Neurologic: alert, oriented x3, responsive, motor strength/tone normal, sensory intact, speech normal Psychiatric: judgement/insight normal, memory normal, mood/affect normal, no suicidal/homicidal ideation Skin: no rash Lymphatic: no adenopathy Medical Decision Making PA Attestation All my diagnosis and treatment plans were reviewed ad discussed with my supervising physician Dr. Amin Diagnostic Impression: Primary Impression: Bronchitis Additional Impression: GERD (gastroesophageal reflux disease) ER Course 39-year-old female with no symptom past medical history here complaining of pain x3 weeks. Patient reports that she has been coughing with yellow phlegm for the past 3 weeks and the pain in the left upper quadrant gets worse every time she coughs. Denies any nausea vomiting however complains of acid reflux. Denies diarrhea and constipation, fever and chills. Denies chest pain, shortness of breath, palpitation, sore throat, congestion. She denies having history of smoking or alcohol intake. However reports that she consumes a lot of spicy and acidic food. Rating the pain 7 out of 10 without radiation. Reports that it is worse and supine position. Denies urinary complaints, and has not taken medication for symptom relief. Patient is sitting comfortably with stable vital signs. No tenderness or guarding noted upon examination of abdomen. Denies history of any abdominal surgeries Ddx considered but are not limited to: bronchitis, PNA, URI viral, bacterial bronchitis, GERD, gastritis, pancreatitis Vital signs: are WNL, pt. is afebrile H&PE are most consistent with: Bronchitis presumed bacterial due to duration of symptoms and severity, GERD ORDERS: abdominal ultrasound, chest x-ray, CBC, CMP, UA, azithromycin, Phenergan , omeprazole ED INTERVENTIONS: None required at this time. DISCHARGE: At this time pt. is stable for d/c to home. Will provide printed patient care instructions, and any necessary prescriptions. Care plan and follow up instructions have been discussed with the patient prior to discharge. Advised patient to follow-up with primary care provider possibly need to be referred to game designer for possible endoscopy, avoid eating spicy and acidic food. Take medication as directed and if worsening symptoms return to the emergency room EKG Diagnostic Results Rate: normal Rhythm: NSR ST Segments: no acute changes Other Impression No acute ST changes Chest X-Ray Diagnostic Results Chest X-Ray Diagnostic Results : Chest X-Ray Ordered: Yes # of Views/Limited/Complete: 1 View Indication: Shortness of Breath EP Interpretation: Yes PA Xray: Interpretation reviewed, by supervising MD, and agrees with findings. Interpretation: no consolidation, no effusion, no pneumothorax Impression: No acute disease Electronically Signed by: Jacqueline Boyd PA-C CT/MRI/US Diagnostic Results CT/MRI/US Diagnostic Results : Imaging Test Ordered: Abdominal ultrasound Impression Within normal limits Last Vital Signs Date Time Temp Pulse Resp B/P (MAP) Pulse Ox O2 Delivery O2 Flow Rate FiO2 04/25/19 16:10 98.4 97 18 148/99 (115) 96 Room Air Disposition: HOME, SELF-CARE Condition: Stable Scripts Omeprazole (OMEPRAZOLE) 20 Mg Tablet.dr 20 MG ORAL DAILY, #30 TAB Prov: Jacqueline Ballesteros 04/25/19 Promethazine Hcl (PROMETHAZINE HCL*) 6.25 Mg/5 Ml Syrup 5 ML ORAL Q6H, #120 ML 0 Refills Prov: Jacqueline Ballesteros 04/25/19 Azithromycin* (ZITHROMAX*) 250 Mg Tablet 250 MG ORAL DAILY, #6 TAB 0 Refills Take two tables once daily for 1 day, then one tablet once daily for 4 days. Prov: Jacqueline Ballesteros 04/25/19 Referrals: NOT CHOSEN IPA/,REFERRING (PCP) Patient Instructions: Acute Bronchitis, Food Choices for Gastroesophageal Reflux Disease, Adult, [id number] Additional Instructions: Take medication as directed he needs to establish a primary care provider for follow-up avoid eating spicy and acidic food Jacqueline Ballesteros Apr 25, 2019 17:11
[2019-04-25] MEDS ORDERED: PROMETHAZI6.25 MG/1 ORAL (17:13)
[2019-04-25] MEDS ORDERED: ZITHROMAX250 MG ORAL (17:13)
[2019-04-25] MEDS ORDERED: OMEPRAZOLE20 M3 ORAL (17:13)
--- NOTE | 2019-04-25 17:15 | Diagnostic Imaging Report ---
Indication: Cough Technique: One view of the chest Comparison: none Findings: Lungs and pleural spaces are clear. Heart size is normal. No significant change Impression: No acute process
[2019-04-25 17:21] LABS: APPEARANCE,URINE CLEAR; BILIRUBIN, URINE NEGATIVE (NEGATIVE); COLOR,URINE PALE YELLOW; GLUCOSE, URINE (UA) NEGATIVE (NEGATIVE); KETONES,URINE NEGATIVE (NEGATIVE); LEUKOCYTE ESTERASE ,URINE NEGATIVE (NEGATIVE); NITRITE,URINE NEGATIVE (NEGATIVE); PH,URINE 6.5 (4.5-8.0); PROTEIN,URINE NEGATIVE (NEGATIVE); UROBILINOGEN,URINE NORMAL MG/DL (0.0-1.0)
--- NOTE | 2019-04-25 17:23 | Diagnostic Imaging Report ---
Indication: Abdominal pain Technique: Ahumada-scale and duplex images of the upper abdomen were obtained Comparison: none Findings: Exam is somewhat limited due to patient body habitus. Gallbladder is unremarkable, without stones, wall thickening, nor pericholecystic fluid. But is nondistended Sonographic Ames's sign is negative. Common bile duct measures 2 mm in diameter. No intrahepatic biliary ductal dilatation. Liver demonstrates diffusely increased echogenicity, consistent with diffuse hepatocellular disease, most likely fatty change. Portal vein and hepatic veins are patent. Pancreas is incompletely visualized due to overlying bowel gas, visualized portions are unremarkable. Spleen is unremarkable. Left kidney measures 11.6 cm in length. Right kidney measures 10.8 cm length. Both kidneys demonstrate normal echogenicity. There is no hydronephrosis. There is a linear echogenic focus in the left renal sinus . Abdominal aorta is partially obscured by bowel gas, visualized portions are non-aneurysmal . Impression: Limited exam, as described. Noted incomplete visualization of the abdominal aorta and pancreas Grossly negative for gallstones or dilated bile ducts Liver demonstrates diffusely increased echogenicity, consistent with diffuse hepatocellular disease, most likely fatty change.
[2019-04-25 17:24] LABS: BASOPHILS % (AUTO) 1.5 % (0.0-2.0); EOSINOPHILS % (AUTO) 4.6 % (0.0-3.0); HEMOGLOBIN 12.7 G/DL (12.0-16.0); LYMPHOCYTES % (AUTO) 29.9 % (20.0-45.0); MEAN CORPUSCULAR VOLUME 87 FL (80-99); NEUTROPHILS % (AUTO) 57.9 % (45.0-75.0); PLATELET COUNT 266 K/UL (150-450); RED BLOOD COUNT 4.61 M/UL (4.20-5.40); RED CELL DISTRIBUTION WIDTH 12.3 % (11.6-14.8); WHITE BLOOD COUNT 13.6 K/UL (4.8-10.8)
[2019-04-25 17:40] LABS: ANION GAP 7 mmol/L (5-15); BLOOD UREA NITROGEN 13 mg/dL (7-18); CALCIUM 9.2 MG/DL (8.5-10.1); CARBON DIOXIDE 30 MMOL/L (21-32); CHLORIDE 103 MMOL/L (98-107); CREATININE 0.7 MG/DL (0.55-1.30); POTASSIUM 3.7 MMOL/L (3.5-5.1); SODIUM 140 MMOL/L (136-145)
[2019-04-25 17:44] LABS: ALANINE AMINOTRANSFERASE 33 U/L (12-78); ALBUMIN 3.6 G/DL (3.4-5.0); ALBUMIN/GLOBULIN RATIO 0.8 (1.0-2.7); ALKALINE PHOSPHATASE 98 U/L (46-116); ASPARTATE AMINO TRANSFERASE 29 U/L (15-37); BILIRUBIN,TOTAL 0.3 MG/DL (0.2-1.0)
[2019-04-25 18:16] VITALS: BP 136/82
--- NOTE | 2019-04-25 18:20 | NUR ---
ER DISCHARGE NOTE: Patient is cleared to be discharged per ERMD, pt is aox4, on room air, with stable vital signs. pt was given dc and prescription instructions, pt was able to verbalize understanding, pt id band and iv site removed without complications. pt is able to ambulate with steady gait. pt took all belongings.
--- NOTE | 2019-04-26 14:04 | Cardiology Report ---
APPROVED REPORT EKG Measurement Heart [id number] Normal sinus rhythm Rightward axis Incomplete right bundle branch block Borderline ECG
== END 2019-04-25 18:20 | disposition home or self-care (01) ==
LOC: EMR 16:29
DX: K21.9 Gastro-esophageal reflux disease without esophagitis (principal); J40 Bronchitis, not specified as acute or chronic
CPT/HCPCS: 36415; 71045; 76700; 80053; 81001; 81025; 85025; 93005; Z7502; 99284

== ENCOUNTER 2019-07-01 11:28 | Emergency (ER) | payer MEDICAID ==
[~2019-07-01] VITALS: Ht 162.6 cm; Wt 102.1 kg
[~2019-07-01 11:28] MED LIST changes: +OMEPRAZOLE20 M3 ORAL; +PROMETHAZI6.25 MG/1 ORAL; +ZITHROMAX250 MG ORAL
--- NOTE | 2019-07-01 11:40 | NUR ---
ED Nurse Note: Pt ambulated into ER from home by herself. Pt complains of lower right abdominal pain that is unrelieved, /, radiates to lower right back. Pt denies injury to area, constipation. Pt is aao x 4. Pt denies taking any medication recently. Pt reports that she has a hx of kidney stones. IV started in right AC, 20 gauge. Pt resting in bed.
[2019-07-01 12:00] VITALS: BP 141/94
[2019-07-01 12:21] LABS: APPEARANCE,URINE SLIGHTLY CLOUDY; BILIRUBIN, URINE NEGATIVE (NEGATIVE); GLUCOSE, URINE (UA) NEGATIVE (NEGATIVE); KETONES,URINE 1+ (NEGATIVE); LEUKOCYTE ESTERASE ,URINE 1+ (NEGATIVE); NITRITE,URINE NEGATIVE (NEGATIVE); PH,URINE 5 (4.5-8.0); PROTEIN,URINE 3+ (NEGATIVE); UROBILINOGEN,URINE 1 MG/DL (0.0-1.0)
[2019-07-01 12:23] LABS: COLOR,URINE YELLOW
[2019-07-01 12:24] LABS: ANION GAP 9 mmol/L (5-15); BASOPHILS % (AUTO) 1.3 % (0.0-2.0); BLOOD UREA NITROGEN 12 mg/dL (7-18); CALCIUM 9.8 MG/DL (8.5-10.1); CARBON DIOXIDE 29 MMOL/L (21-32); CHLORIDE 99 MMOL/L (98-107); CREATININE 0.9 MG/DL (0.55-1.30); EOSINOPHILS % (AUTO) 7.5 % (0.0-3.0); HEMATOCRIT 41.6 % (37.0-47.0); HEMOGLOBIN 13.4 G/DL (12.0-16.0); LYMPHOCYTES % (AUTO) 32.1 % (20.0-45.0); MEAN CORPUSCULAR VOLUME 85 FL (80-99); MONOCYTES % (AUTO) 5.9 % (1.0-10.0); NEUTROPHILS % (AUTO) 53.2 % (45.0-75.0); PLATELET COUNT 201 K/UL (150-450); RED BLOOD COUNT 4.89 M/UL (4.20-5.40); RED CELL DISTRIBUTION WIDTH 12.1 % (11.6-14.8); SODIUM 137 MMOL/L (136-145); WHITE BLOOD COUNT 9.4 K/UL (4.8-10.8)
[2019-07-01 12:28] LABS: ALANINE AMINOTRANSFERASE 30 U/L (12-78); ALBUMIN 4.1 G/DL (3.4-5.0); ALBUMIN/GLOBULIN RATIO 0.8 (1.0-2.7); ALKALINE PHOSPHATASE 107 U/L (46-116); ASPARTATE AMINO TRANSFERASE 23 U/L (15-37); BILIRUBIN,TOTAL 0.4 MG/DL (0.2-1.0)
--- NOTE | 2019-07-01 12:28 | Emergency Room Report ---
History of Present Illness General Chief Complaint: Abdominal Pain Source: Patient, Medical Record Present Illness HPI She states that about an hour prior to arrival she suddenly developed pain in her right lower quadrant. She states the pain is severe. She does have a history of kidney stones. She states previously they have been on the left side. She denies recent illness. Denies fever chills. She states she did have nausea with waves of pain. She has no other complaints. Allergies: Coded Allergies: No Known Allergies (Unverified , 09/09/13) Patient History Past Medical History: see triage record, asthma Social History: Denies: smoking, alcohol use, drug use Reviewed Nursing Documentation: PMH: Agreed; PSxH: Agreed Nursing Documentation-PMH Past Medical History: No History, Except For Hx Asthma: Yes Review of Systems All Other Systems: negative except mentioned in HPI Physical Exam Vital Signs Date Time Temp Pulse Resp B/P (MAP) Pulse Ox O2 Delivery O2 Flow Rate FiO2 07/01/19 11:34 98.4 73 18 141/96 (111) 96 Room Air Sp02 EP Interpretation: reviewed, normal General Appearance: no apparent distress, alert, GCS 15, non-toxic Head: normocephalic, atraumatic Eyes: bilateral eye normal inspection, bilateral eye PERRL ENT: hearing grossly normal, normal pharynx, no angioedema, normal voice Neck: full range of motion, supple/symm/no masses Respiratory: chest non-tender, lungs clear, normal breath sounds, no respiratory distress, no retraction, no accessory muscle use, speaking full sentences Cardiovascular #1: regular rate, rhythm, no edema Gastrointestinal: normal bowel sounds, non tender, soft, non-distended, no guarding, no rebound Rectal: deferred Musculoskeletal: back normal, normal range of motion, gait/station normal, non- tender Neurologic: alert, motor strength/tone normal, oriented x3, sensory intact, responsive, speech normal Psychiatric: judgement/insight normal, memory normal, mood/affect normal, no suicidal/homicidal ideation Skin: no rash, normal color Medical Decision Making Diagnostic Impression: Primary Impression: Urolithiasis ER Course This patient is found to have a 7 mm kidney stone at the right UPJ. She does have hydronephrosis but does not have an infected obstructed stone. This is a very large stone. I instructed the patient that she should see a urologist on Thursday. I am concerned the stone may not pass. I will give the patient pain medications and Uroxatrol to see if it will pass spontaneously. The patient was given the report on her CT scan. She was given infection return precautions and close follow-up instructions. Laboratory Tests Test 07/01/19 12:02 White Blood Count 9.4 K/UL (4.8-10.8) Red Blood Count 4.89 M/UL (4.20-5.40) Hemoglobin 13.4 G/DL (12.0-16.0) Hematocrit 41.6 % (37.0-47.0) Mean Corpuscular Volume 85 FL (80-99) Mean Corpuscular Hemoglobin 27.4 PG (27.0-31.0) Mean Corpuscular Hemoglobin Concent 32.2 G/DL (32.0-36.0) Red Cell Distribution Width 12.1 % (11.6-14.8) Platelet Count 201 K/UL (150-450) Mean Platelet Volume 7.0 FL (6.5-10.1) Neutrophils (%) (Auto) 53.2 % (45.0-75.0) Lymphocytes (%) (Auto) 32.1 % (20.0-45.0) Monocytes (%) (Auto) 5.9 % (1.0-10.0) Eosinophils (%) (Auto) 7.5 % (0.0-3.0) H Basophils (%) (Auto) 1.3 % (0.0-2.0) Urine Color Yellow Urine Appearance Slightly cloudy Urine pH 5 (4.5-8.0) Urine Specific [place] 1.025 (1.005-1.035) Urine Protein 3+ (NEGATIVE) H Urine Glucose (UA) Negative (NEGATIVE) Urine Ketones 1+ (NEGATIVE) H Urine Blood 5+ (NEGATIVE) H Urine Nitrite Negative (NEGATIVE) Urine Bilirubin Negative (NEGATIVE) Urine Urobilinogen 1 MG/DL (0.0-1.0) H Urine Leukocyte Esterase 1+ (NEGATIVE) H Urine RBC 40-60 /HPF (0 - 2) H Urine WBC 2-4 /HPF (0 - 2) Urine Squamous Epithelial Cells Few /LPF (NONE/OCC) Urine Bacteria Few /HPF (NONE) Urine HCG, Qualitative Negative (NEGATIVE) Sodium Level 137 MMOL/L (136-145) Potassium Level 4.0 MMOL/L (3.5-5.1) Chloride Level 99 MMOL/L (98-107) Carbon Dioxide Level 29 MMOL/L (21-32) Anion Gap 9 mmol/L (5-15) Blood Urea Nitrogen 12 mg/dL (7-18) Creatinine 0.9 MG/DL (0.55-1.30) Estimate Glomerular Filtration Rate > 60 mL/min (>60) Glucose Level 108 MG/DL (74-106) H Calcium Level 9.8 MG/DL (8.5-10.1) Total Bilirubin 0.4 MG/DL (0.2-1.0) Aspartate Amino Transferase (AST) 23 U/L (15-37) Alanine Aminotransferase (ALT) 30 U/L (12-78) Alkaline Phosphatase 107 U/L (46-116) Total Protein 9.1 G/DL (6.4-8.2) H Albumin 4.1 G/DL (3.4-5.0) Globulin 5.0 g/dL Albumin/Globulin Ratio 0.8 (1.0-2.7) L CT/MRI/US Diagnostic Results CT/MRI/US Diagnostic Results : Imaging Test Ordered: CT abd/pelvis Impression Impression: Positive for 7 mm calculus at the right ureteropelvic junction. This results in mild right hydronephrosis and hydroureter Previously demonstrated left intrarenal calculus is no longer evident Focal fatty change in the liver in the usual location adjacent to the falciform ligament Incidental finding small fat-containing umbilical hernia Last Vital Signs Date Time Temp Pulse Resp B/P (MAP) Pulse Ox O2 Delivery O2 Flow Rate FiO2 07/01/19 12:19 77 20 Room Air 07/01/19 12:00 97.2 141/94 100 Status: improved Disposition: HOME, SELF-CARE Condition: Improved Hetal Murphy DO Jul 01, 2019 12:28
[2019-07-01] MEDS ORDERED: Ketorolac 30mg Inj IV ONE (13:00)
--- NOTE | 2019-07-01 13:21 | NUR ---
ED Nurse Note: PT OFF TO CT VIA WHEELCHAIR ACCOMPANIED BY BRANDS EDITOR.
--- NOTE | 2019-07-01 13:40 | NUR ---
ED Nurse Note: pt returned from CT, vss, resp even and unlabored on RA, iv fluid connected and continued per ERMD order. safety measures in place.
--- NOTE | 2019-07-01 14:06 | Diagnostic Imaging Report ---
Indication: Right-sided abdominal pain, 10 out of 10, radiating to right back, history of kidney stones Technique: Spiral acquisitions obtained through the abdomen and pelvis. No oral or IV contrast utilized, per urinary stone protocol. Multiplanar reconstructions were generated. Total dose length product 2152 mGycm. CTDIvol(s) 37 mGy. Dose reduction achieved using automated exposure control Comparison: 07/02/2016 Findings: There is a 7 mm diameter calculus at the right ureteropelvic junction. This results in mild right hydronephrosis and hydroureter. No ureteral calculi. No left renal or ureteral calculi, hydronephrosis, or hydroureter demonstrated. Previously demonstrated right posterior calyceal calculus is no longer evident, may be the calculus that is currently at the ureteropelvic junction although the current calculus is significantly larger. Previously demonstrated left renal calculus is no longer evident There is a circumaortic left renal vein incidentally noted. Lack of IV contrast limits assessment of the renal parenchyma. No gross renal parenchymal mass or cyst demonstrated. Lack of IV contrast limits assessment of the other solid organs. The liver demonstrates some focal fatty change in the usual location adjacent to the falciform ligament. The gallbladder, bile ducts, pancreas, spleen, adrenals are unremarkable. No retroperitoneal or mesenteric mass or adenopathy. No pelvic mass or adenopathy. Normal uterus and ovaries. The bladder is unremarkable. No evidence of colonic diverticulosis or diverticulitis. The appendix is normal. No small bowel distention. No free or loculated intraperitoneal gas or fluid is evident. There is a small fat-containing umbilical hernia. Distal esophagus, stomach, duodenum are unremarkable. The included lung bases are clear. The bones are unremarkable. Impression: Positive for 7 mm calculus at the right ureteropelvic junction. This results in mild right hydronephrosis and hydroureter Previously demonstrated left intrarenal calculus is no longer evident Focal fatty change in the liver in the usual location adjacent to the falciform ligament Incidental finding small fat-containing umbilical hernia The CT scanner at [facility] is accredited by the [employer] and the scans are performed using protocols designed to limit radiation exposure to as low as reasonably achievable to attain images of sufficient resolution adequate for diagnostic evaluation.
[2019-07-01] MEDS ORDERED: IBUPROFEN800 MG ORAL ×2 (14:23→14:29)
[2019-07-01] MEDS ORDERED: ALFUZOSIN HCL10 MG PO ×2 (14:23→14:29)
[2019-07-01] MEDS ORDERED: NORCO 5-325 TA1 EACH ORAL ×2 (14:23→14:28)
[2019-07-01 14:30] VITALS: BP 138/82
[2019-07-01 14:52] VITALS: BP 138/80
--- NOTE | 2019-07-01 14:52 | NUR ---
ER DISCHARGE NOTE: Patient is cleared to be discharged home per ERMD, pt is aox4, on room air, with stable vital signs. Pt reports that pain has decreased from 10/10 to 2/10. pt was given dc and prescription instructions, pt was able to verbalize understanding, pt id band and iv site removed without complications. pt is able to ambulate with steady gait. pt took all belongings.
== END 2019-07-01 14:52 | disposition home or self-care (01) ==
LOC: EMR 12:30
DX: N20.9 Urinary calculus, unspecified (principal); J45.909 Unspecified asthma, uncomplicated
CPT/HCPCS: 36415; 74176; 80053; 81003; 81025; 85025; 96360; 96374; J1885; Z7502; 99284

== ENCOUNTER 2019-10-10 14:50 | Emergency (ER) | payer MEDICAID ==
[~2019-10-10] VITALS: Ht 162.6 cm; Wt 102.1 kg
[~2019-10-10 14:50] MED LIST changes: +ALFUZOSIN HCL10 MG PO
[2019-10-10] MEDS ORDERED: LOVENOX10 M3 SUBQ (15:01)
[2019-10-10 15:35] VITALS: BP 141/94
--- NOTE | 2019-10-10 15:35 | NUR ---
ER Nurse Note: Pt walked in c/o RLQ sharp pain since 1430. Pt stated shrap 10/10 pain in her RLQ, non radiating. Pt stated she had kidney stones in the past and has the same pain. Pt denies n/v/d. Pt stated she is 8 weeks . IV established, blood and urine sent to lab. All orders completed per ERMD orders. Will continue to monitor.
[2019-10-10 15:47] LABS: APPEARANCE,URINE SLIGHTLY CLOUDY; BILIRUBIN, URINE NEGATIVE (NEGATIVE); COLOR,URINE BROWN; GLUCOSE, URINE (UA) NEGATIVE (NEGATIVE); KETONES,URINE 1+ (NEGATIVE); LEUKOCYTE ESTERASE ,URINE 2+ (NEGATIVE); NITRITE,URINE POSITIVE (NEGATIVE); PH,URINE 5 (4.5-8.0); PROTEIN,URINE 3+ (NEGATIVE); UROBILINOGEN,URINE 1 MG/DL (0.0-1.0)
[2019-10-10 15:53] LABS: BASOPHILS % (AUTO) 1.4 % (0.0-2.0); EOSINOPHILS % (AUTO) 3.9 % (0.0-3.0); HEMATOCRIT 38.3 % (37.0-47.0); HEMOGLOBIN 12.7 G/DL (12.0-16.0); LYMPHOCYTES % (AUTO) 27.5 % (20.0-45.0); MEAN CORPUSCULAR VOLUME 85 FL (80-99); MONOCYTES % (AUTO) 5.2 % (1.0-10.0); NEUTROPHILS % (AUTO) 62.1 % (45.0-75.0); PLATELET COUNT 215 K/UL (150-450); RED BLOOD COUNT 4.48 M/UL (4.20-5.40); RED CELL DISTRIBUTION WIDTH 14.2 % (11.6-14.8); WHITE BLOOD COUNT 15.5 K/UL (4.8-10.8)
[2019-10-10 15:59] LABS: ANION GAP 10 mmol/L (5-15); BLOOD UREA NITROGEN 12 mg/dL (7-18); CALCIUM 9.5 MG/DL (8.5-10.1); CARBON DIOXIDE 23 MMOL/L (21-32); CHLORIDE 103 MMOL/L (98-107); CREATININE 0.8 MG/DL (0.55-1.30); POTASSIUM 3.7 MMOL/L (3.5-5.1); SODIUM 136 MMOL/L (136-145)
[2019-10-10 16:03] LABS: ALANINE AMINOTRANSFERASE 24 U/L (12-78); ALBUMIN 3.5 G/DL (3.4-5.0); ALBUMIN/GLOBULIN RATIO 0.8 (1.0-2.7); ALKALINE PHOSPHATASE 64 U/L (46-116); ASPARTATE AMINO TRANSFERASE 20 U/L (15-37); BILIRUBIN,TOTAL 0.2 MG/DL (0.2-1.0)
--- NOTE | 2019-10-10 16:12 | Emergency Room Report ---
History of Present Illness General Chief Complaint: Abdominal Pain Source: Patient Present Illness HPI Patient presents with complaints of right lower abdominal pain sharp stabbing Feels similar to her previous kidney stone Patient reports that she is now 8 weeks Was having darker urine And felt that her kidney stone had returned and presents to the ER denies any vomiting or diarrhea denies any fevers or chills denies any upper or flank type pain denies any dysuria frequency COVID-19 risk:Contact w/high r: No COVID-19 risk:Travel to affect: No Has patient experienced shankar: No Allergies: Coded Allergies: No Known Allergies (Unverified , 09/09/13) Patient History Past Medical History: see triage record Now: Yes - 8 weeks. Reviewed Nursing Documentation: PMH: Agreed; PSxH: Agreed Nursing Documentation-PMH Past Medical History: No History, Except For Hx Asthma: Yes Review of Systems All Other Systems: negative except mentioned in HPI Physical Exam Vital Signs Date Time Temp Pulse Resp B/P (MAP) Pulse Ox O2 Delivery O2 Flow Rate FiO2 10/10/19 14:55 98.2 72 17 141/94 (110) 98 Room Air Sp02 EP Interpretation: reviewed, normal General Appearance: no apparent distress Head: normocephalic, atraumatic Eyes: bilateral eye PERRL, bilateral eye EOMI ENT: EOM grossly intact Neck: supple Respiratory: lungs clear, no rhonchi, no respiratory distress, no retraction Cardiovascular #1: no edema Gastrointestinal: non tender - On palpation, patient is fairly early in the cannot palpate any gravid abdomen, patient subjectively points to the right lower quadrant for pain Musculoskeletal: normal inspection Neurologic: alert, oriented x3 Skin: no rash Lymphatic: normal inspection Medical Decision Making Diagnostic Impression: Primary Impression: UTI (urinary tract infection) Additional Impressions: Kidney stones Abdominal pain affecting ER Course With the patient's history and examination, multiple differentials considered, including but not limited to , ectopic , ovarian torsion, gastritis, cholecystitis, pancreatitis, appendicitis other differential such as obstructed kidney stone Pyelonephritis also considered Patient's white blood cell count is mildly elevated urine sample does show positive nitrites and bacteria Patient is on ultrasound approximately 8 weeks which Correlate with her description patient remains afebrile heart rate is 83 There is concern regarding sepsis sepsis secondary to Obstructed stone Patient on clinical exam at this time appears very comfortable Plan at this time will have initial conservative outpatient trial Patient has complex 1 will require multispecialty follow-up patient does have these specialty follow-ups already in place Labs Test 10/10/19 15:20 10/10/19 17:20 White Blood Count 15.5 K/UL (4.8-10.8) Red Blood Count 4.48 M/UL (4.20-5.40) Hemoglobin 12.7 G/DL (12.0-16.0) Hematocrit 38.3 % (37.0-47.0) Mean Corpuscular Volume 85 FL (80-99) Mean Corpuscular Hemoglobin 28.4 PG (27.0-31.0) Mean Corpuscular Hemoglobin Concent 33.2 G/DL (32.0-36.0) Red Cell Distribution Width 14.2 % (11.6-14.8) Platelet Count 215 K/UL (150-450) Mean Platelet Volume 8.0 FL (6.5-10.1) Neutrophils (%) (Auto) 62.1 % (45.0-75.0) Lymphocytes (%) (Auto) 27.5 % (20.0-45.0) Monocytes (%) (Auto) 5.2 % (1.0-10.0) Eosinophils (%) (Auto) 3.9 % (0.0-3.0) Basophils (%) (Auto) 1.4 % (0.0-2.0) Urine Color Brown Urine Appearance Slightly cloudy Urine pH 5 (4.5-8.0) Urine Specific [place] 1.025 (1.005-1.035) Urine Protein 3+ (NEGATIVE) Urine Glucose (UA) Negative (NEGATIVE) Urine Ketones 1+ (NEGATIVE) Urine Blood 5+ (NEGATIVE) Urine Nitrite Positive (NEGATIVE) Urine Bilirubin Negative (NEGATIVE) Urine Urobilinogen 1 MG/DL (0.0-1.0) Urine Leukocyte Esterase 2+ (NEGATIVE) Urine RBC 10-15 /HPF (0 - 2) Urine WBC 5-10 /HPF (0 - 2) Urine Squamous Epithelial Cells Few /LPF (NONE/OCC) Urine Bacteria Moderate /HPF (NONE) Urine HCG, Qualitative Positive (NEGATIVE) Sodium Level 136 MMOL/L (136-145) Potassium Level 3.7 MMOL/L (3.5-5.1) Chloride Level 103 MMOL/L (98-107) Carbon Dioxide Level 23 MMOL/L (21-32) Anion Gap 10 mmol/L (5-15) Blood Urea Nitrogen 12 mg/dL (7-18) Creatinine 0.8 MG/DL (0.55-1.30) Estimat Glomerular Filtration Rate > 60 mL/min (>60) Glucose Level 98 MG/DL (74-106) Calcium Level 9.5 MG/DL (8.5-10.1) Total Bilirubin 0.2 MG/DL (0.2-1.0) Aspartate Amino Transf (AST/SGOT) 20 U/L (15-37) Alanine Aminotransferase (ALT/SGPT) 24 U/L (12-78) Alkaline Phosphatase 64 U/L (46-116) Total Protein 8.0 G/DL (6.4-8.2) Albumin 3.5 G/DL (3.4-5.0) Globulin 4.5 g/dL Albumin/Globulin Ratio 0.8 (1.0-2.7) Lactic Acid Level 1.00 mmol/L (0.4-2.0) CT/MRI/US Diagnostic Results CT/MRI/US Diagnostic Results : Impression Renal ultrasoundUS ABDOMEN: Right kidney measures 11.7 cm in length. Mild right hydronephrosis. Question nonobstructing right renal stone. Left kidney measures 11.5 cm in length. Mild left hydronephrosis. No definite stone identified. Visualized portions of the IVC are unremarkable. Visualized portions of the bladder are unremarkable. Ureteral jets are noted. Pelvic ultrasoundUS OB 1st TRIMESTER: Single intrauterine with heart rate of 160 bpm. No acute abnormality identified. Average ultrasound age of 10 weeks 1 day. Uterus measures 14.5 x 6.7 x 7.2 cm. Right ovary measures 3.8 x 1.8 x 3.2 cm. Normal appearance with normal color Doppler flow. Left ovary measures 4.3 x 3.2 x 4.1 cm. Normal appearance with normal color Doppler flow. Last Vital Signs Date Time Temp Pulse Resp B/P (MAP) Pulse Ox O2 Delivery O2 Flow Rate FiO2 10/10/19 15:35 72 17 Room Air 10/10/19 15:35 98.2 141/94 98 Status: improved Disposition: HOME, SELF-CARE Condition: Improved Scripts Cephalexin* (KEFLEX*) 500 Mg Capsule 500 MG ORAL EVERY 6 HOURS for 10 Days, CAP Prov: Zora Yanez DO 10/10/19 Referrals: NOT CHOSEN IPA/MD,REFERRING (PCP) Additional Instructions: Please follow-up with your primary physician next 1 day return to the ER with any worsening symptoms such as fever or pain Zora Yanez DO Oct 10, 2019 16:12
[2019-10-10] MEDS ORDERED: cefTRIAXone 1 GM in NS 55 ML IVPB ONE (16:15)
--- NOTE | 2019-10-10 17:00 | NUR ---
ER Nurse Note: Ultrasound at bedside; all orders completed per ERMD orders. Pt remains at baseline. VSS, RA, no signs of distress. Will continue to montior.
[2019-10-10 17:36] VITALS: BP 139/79
--- NOTE | 2019-10-10 17:41 | Diagnostic Imaging Report ---
Indication: Positive . Pelvic pain Technique: Grayscale and duplex Doppler imaging of the pelvis performed utilizing a transabdominal scan. Endovaginal scan was refused by the patient Comparison: None Findings: There is a single living IUP demonstrated. Yolk sac is noted. Gestational age based on crown-rump length is 8 weeks 5 days +/- 5 days. The ovaries are not seen. There is no free fluid. IMPRESSION: Single living IUP 8 weeks 5 days. Limited evaluation. Endovaginal scan not performed.
--- NOTE | 2019-10-10 17:52 | Diagnostic Imaging Report ---
Indication: History of renal calculus and obstruction. Flank pain. Technique: Grayscale and duplex Doppler imaging of the kidneys performed. Comparison: Noncontrast CT abdomen 07/01/2019 Findings: There is minimal right hydronephrosis are demonstrated. Questionable small nonobstructive calculus in the kidney also present. Left kidney is not well-visualized. There may be minimal hydronephrosis on the left.. The right kidney measures 11.7 cm. in length. The left kidney measures 11.5 cm. in length. The IVC is patent. Urinary bladder is unremarkable. IMPRESSION: Mild hydronephrosis on the right. Minimal additional hydronephrosis on the left kidney. Probable nonobstructive stone right kidney.
[2019-10-10] MEDS ORDERED: CEPHALEXIN500 MG ORAL (17:58)
[2019-10-10 18:28] VITALS: BP 136/78
--- NOTE | 2019-10-10 18:30 | NUR ---
ED Nurse Note: Pt cleared by health care Provider for discharge. DC instructions/prescription was given and explained to pt and verbalized understanding of teachings. Instructed pt to follow up with [facility] physican within 2-3days. All medical deviecs such as ID band, IV removed, site clean and bandaged. Pt is AAO x4, ambulatory and left with all personal belongings.
== END 2019-10-10 18:30 | disposition home or self-care (01) ==
LOC: EMR 15:27 → CANBEDREQ 17:57 → EMR 18:30
DX: O23.41 Unspecified infection of urinary tract in pregnancy, first trimester (principal); R10.9 Unspecified abdominal pain; Z3A.10 10 weeks gestation of pregnancy; O99.89 Other specified diseases and conditions complicating pregnancy, childbirth and the puerperium; N13.2 Hydronephrosis with renal and ureteral calculous obstruction
CPT/HCPCS: 36415; 76770; 76801; 80053; 81003; 81025; 83605; 85025; 87086; 96361; 96365; 96375; J0696; J2405; J7030; J7040; Z7502; 99284